=== PATIENT | female | born 1985 | race Caucasian/White ===

== ENCOUNTER 2022-07-17 16:22 | Observation (INO) | payer MEDICAID, OTHER ==
[~2022-07-17] VITALS: Ht 152.4 cm; Wt 81.6 kg
[~2022-07-17 16:22] MED LIST: PREN-88 PO
== END 2022-07-17 18:59 | disposition home or self-care (01) ==
LOC: 8 EST LDRP 16:22
PROVIDERS: ADMIT Obstetrics & Gynecology; ATTEND Obstetrics & Gynecology
DX: O62.9 Abnormality of forces of labor, unspecified (principal); Z3A.36 36 weeks gestation of pregnancy
CPT/HCPCS: 59025; 76805; 76818; G0378; G0379